=== PATIENT | female | born 1970 | race Caucasian/White ===

== ENCOUNTER 2024-03-03 12:51 | Emergency (ER) | payer OTHER, SELFPAY ==
[2024-03-03] VITALS (8 sets, daily range): BP systolic 134–153; BP diastolic 67–77; PULSE 69–97; RESP 17–20; TEMP 36.8–37.2; O2SAT 96–100
--- NOTE | ~2024-03-03 | XR_ITS ---
[id number] 03/03/2024 13:59 Indication: Right rib pain. Cough. Right-sided chest pain. Procedure: 4 views of the right ribs including PA view of the chest Comparison: No prior studies for comparison. Findings: Right basilar airspace disease, consistent with pneumonia. Right pleural effusion is presen t. No acute displaced rib fracture. No pneumothorax. Heart size normal. Left lung clear. Impression: 1: No acute displaced rib fracture. 2: Right basilar airspace disease, compatible with pneumonia. 3: Small right pleural effusion. Reviewed, dictated and finalized at location A. Impression: 1: No acute displaced rib fracture. 2: Right basilar airspace disease, compatible with pneumonia. 3: Small right pleural effusion.
--- NOTE | 2024-03-03 12:58 | ECG_ITS ---
SEE SCANNED COPY FOR CONFIRMED REPORT MTDD
[2024-03-03 13:11] LABS: Basophils Absolute Auto 0.1 K/mm3 (0.0-0.1); Basophils Percent Auto 0.5 % (0.2-1.2); Eosinophils Absolute Auto 0.5 K/mm3 (0-0.3); Eosinophils Percent Auto 3.2 % (0-4.4); Hematocrit 38.4 % (37.0-47.0); Immature Granulocyte Absolute 0.08 K/mm3 (0.00-0.031); Immature Granulocyte Percent A 0.5 % (0-0.5); Lymphocytes Absolute Auto 1.48 K/mm3 (0.9-3.2); Lymphocytes Percent Auto 9.7 % (18.3-44.2); Mean Corpuscular HGB Conc 31.3 g/dl (32-36); Mean Corpuscular Hemoglobin 29.7 pg (26-34); Mean Platelet Volume 9.9 fl (7.4-10.4); Monocytes Absolute Auto 0.7 K/mm3 (0.1-0.6); Monocytes Percent Auto 4.4 % (2.6-8.5); Neutrophils Absolute Auto 12.5 K/mm3 (1.3-6.7); Neutrophils Percent Auto 81.7 % (45.5-73.1); Platelet Count Result 403 k/mm3 (150-375); Red Blood Count 4.04 M/mm3 (4.2-5.4); Red Cell Distribution Width 14.2 % (11.5-14.5); White Blood Count 15.3 K/mm3 (4.5-10.0)
[2024-03-03 13:20] LABS: Alanine Aminotransferase 36 U/L (6-35); Albumin Level 3.9 g/dL (3.5-5.1); Alkaline Phosphatase 103 U/L (38-126); Anion Gap 4 mmol/L (4-12); Aspartate Amino Transferase 21 U/L (14-36); Bilirubin,Total 0.6 mg/dL (0.2-1.3); Blood Urea Nitrogen 8 mg/dL (7-17); Calcium 9.2 mg/dL (8.4-10.2); Carbon Dioxide 38 mmol/L (22-30); Chloride 95 mmol/L (98-107); Estimated Glomerular Filt Rate > 60; Glucose 137 mg/dL (65-110); Potassium 3.6 mmol/L (3.4-5.0); Sodium 137 mmol/L (137-145)
[2024-03-03 13:25] LABS: INR 1.1; Prothrombin Time 14.7 Seconds (11.1-14.7)
--- NOTE | 2024-03-03 13:27 | PC.NURSE ---
Pt reports RUQ pain worse when ambulating and doesn't necessarily cause dyspnea reports it cause her to take deep breath and hold it in. Also finished abx for UTI 2 days ago
[2024-03-03 13:47] LABS: Appearance Urine Clear (Clear); Bacteria Urine 2+ /hpf; Bilirubin Urine Negative (Negative); Blood Urine Negative (Negative); Color Urine Yellow (Yellow); Glucose Urine UA Negative (Negative); Ketones Urine Negative (Negative); Leukocyte Esterase Ur Trace LEU/UL (Negative); Nitrate Urine Negative (Negative); Non Pathogenic Casts 0-2; Protein Urine Negative (Negative); RBC Urine 0-2 /hpf (0-2); Squamous Epithelial Cell Urine Moderate /hpf (Few); pH Urine 8.5 (5.0-9.0)
[2024-03-03 14:22] LABS: Add Urine Microscopic? YES
[2024-03-03] MEDS: DOXYCYCLINE HYCLATE 100 MG TABLET PO (14:48)
--- NOTE | 2024-03-03 14:50 | ED.SOB ---
HPI - SOB/Dyspnea General Chief Complaint: Shortness of Breath/Dyspnea Stated Complaint: right side rib cage pain Time Seen by Provider: 03/03/24 13:37 History of Present Illness HPI Narrative: Patient here with persistent cough and some R sided flank/rib pain ongoing for several weeks; she had a UTI that was treated recently. Related Data Allergies Allergy/AdvReac Type Severity Reaction Status Date / Time erythromycin base AdvReac Mild Nausea Verified 03/03/24 14:54 Review of Systems Review of Systems: All systems reviewed & are unremarkable except as noted in HPI and below Exam Narrative: EXAMINATION OF ORGAN SYSTEMS/BODY AREAS: Constitutional: Vital signs per nursing GENERAL:[No acute distress, non-toxic appearing.] HEAD: Normal with no signs of head trauma. EYES: EOMI, conjunctiva normal ENT: Hearing grossly intact LUNGS: Nonlabored breathing. CTAB HEART: [Regular rate and rhythm] ABD: [Soft], [nontender to palpation] EXT: Normal range of motion SKIN: [No rashes or lesions.] NEURO: [Alert and oriented x 3. No gross focal sensory or strength deficits.] PSYCH: Normal affect Course Vital Signs Vital signs: Vital Signs Temperature 98.9 F 03/03/24 12:54 Pulse Rate 97 03/03/24 12:54 Respiratory Rate 18 03/03/24 12:54 Blood Pressure 153/75 H 03/03/24 12:54 Pulse Oximetry 98 03/03/24 12:54 Oxygen Delivery Room Air 03/03/24 12:54 Temperature 98.3 F 03/03/24 13:52 Pulse Rate 85 03/03/24 14:54 Respiratory Rate 17 03/03/24 14:54 Blood Pressure 134/67 03/03/24 14:54 Pulse Oximetry 98 03/03/24 14:54 Oxygen Delivery Room Air 03/03/24 12:54 MDM - SOB/Dyspnea MDM Narrative Medical decision making narrative: 53F p/w R flank pain + cough. CXR on my independent interpretation showing R lower lobe opacity c/w pneumonia. EKG normal sinus rhythm rate 77, RI 140, QRS 82, QTC 420, normal axis, no ST elevations depressions, no signs of acute ischemia or arrhythmia on my independent interpretation. UA c/w UTI; slightly elevated WBC, I suspect possible PNA and pyelo; will start her on abx. Vitals wnl; I do feel patient is stable for discharge at this time, IV antibiotics given, pt agreeable to outpt mgmt and return precautions discussed. Lab Data 03/03/24 13:05 03/03/24 13:05 Labs: Lab Results 03/03/24 03/03/24 Range/Units 13:05 13:37 WBC 15.3 H (4.5-10.0) K/mm3 RBC 4.04 L (4.2-5.4) M/mm3 Hgb 12.0 (12.0-15.0) g/dL Hct 38.4 (37.0-47.0) % MCV 95.0 (80-100) fl MCH 29.7 (26-34) pg MCHC 31.3 L (32-36) g/dl RDW 14.2 (11.5-14.5) % Plt Count 403 H (150-375) k/mm3 MPV 9.9 (7.4-10.4) fl Immature Gran % (Auto) 0.5 (0-0.5) % Neut % (Auto) 81.7 H (45.5-73.1) % Lymph % (Auto) 9.7 L (18.3-44.2) % Kern % (Auto) 4.4 (2.6-8.5) % Eos % (Auto) 3.2 (0-4.4) % Baso % (Auto) 0.5 (0.2-1.2) % Lymph # (Auto) 1.48 (0.9-3.2) K/mm3 Kern # (Auto) 0.7 H (0.1-0.6) K/mm3 Eos # (Auto) 0.5 H (0-0.3) K/mm3 Baso # (Auto) 0.1 (0.0-0.1) K/mm3 Abs Immat Gran (auto) 0.08 H (0.00-0.031) K/mm3 Absolute Neuts (auto) 12.5 H (1.3-6.7) K/mm3 Absolute Nucleated RBC 0.000 (0.0-0.012) K/mm3 Nucleated RBC % 0.0 (0.0-0.2) % PT 14.7 (11.1-14.7) Seconds INR 1.1 Sodium 137 (137-145) mmol/L Potassium 3.6 (3.4-5.0) mmol/L Chloride 95 L (98-107) mmol/L Carbon Dioxide 38 H (22-30) mmol/L Anion Gap 4 (4-12) mmol/L BUN 8 (7-17) mg/dL Creatinine 0.70 (0.7-1.0) mg/dL Estim Creat Clear Calc Not Reportable Estimated GFR > 60 (59 - ) Glucose 137 H (65-110) mg/dL Calcium 9.2 (8.4-10.2) mg/dL Total Bilirubin 0.6 (0.2-1.3) mg/dL AST 21 (14-36) U/L ALT 36 H (6-35) U/L Alkaline Phosphatase 103 (38-126) U/L Total Protein 8.0 (6.3-8.2) g/dL Albumin 3.9 (3.5-5.1) g/dL Urine Color Yellow (Yellow) Urine Appearance
[2024-03-03] MEDS: ONDANSETRON INJ 4 MG/2 ML VIAL IV PUSH (14:58)
== END 2024-03-03 15:06 | disposition home or self-care (01) ==
PROVIDERS: Preventive Medicine Aerospace Medicine; Emergency Provider Emergency Medicine
DX: J18.9 Pneumonia, unspecified organism (principal); N12 Tubulo-interstitial nephritis, not specified as acute or chronic; R94.31 Abnormal electrocardiogram [ECG] [EKG]
CPT/HCPCS: 36415; 71101; 80053; 81001; 85025; 85610; 87077; 87086; 87088; 87186; 93005; 96365; 96375; 99284; A9270; J0696; J2405